=== PATIENT | female | born 1970 | race African-American/Black ===

== ENCOUNTER 2018-02-09 09:51 | Inpatient (IN) | payer MEDICAID ==
[2018-02-09] VITALS (8 sets, daily range): BP systolic 135–157; BP diastolic 56–96
[~2018-02-09] VITALS: Ht 175.3 cm; Wt 121.7 kg
[2018-02-09 10:44] LABS: Basophils # (auto) 0.1 uL; Eosinophils # (auto) 0.2 uL; Lymphocytes # (auto) 2.4 uL
[2018-02-09 10:46] LABS: Basophils % (auto) 0.9 % (0.0-2.0); Hematocrit 24.3 % (36.0-46.0); Lymphocytes % (auto) 26.9 % (10.0-50.0); Mean Corpuscular Hemoglobin 16.7 pg (28.0-32.0); Mean Corpuscular Hgb Conc. 28.4 g/dL (32.0-36.0); Mean Corpuscular Volume 58.9 fL (80.0-100.0); Monocytes # (auto) 0.4 uL; Neutrophils # (auto) 5.9 uL; Neutrophils % (auto) 65.2 % (37.0-80.0); Nucleated Red Blood Cells % 1.2 %; Platelet Count (auto) 522 10^3/uL (140-450); Red Blood Cells 4.13 10^6/uL (4.0-5.20)
[2018-02-09 10:56] LABS: Red Cell Distribution Width 29.2 % (11.8-14.3)
[2018-02-09 10:59] LABS: Hemoglobin 6.9 g/dL (12.2-16.2)
[2018-02-09 11:12] LABS: Alanine Aminotransferase 22 U/L (13-56); Albumin 3.8 g/dL (3.4-5.0); Alkaline Phosphatase 74 U/L (45-117); Anion Gap 9 (5-15); Aspartate Aminotransferase 20 U/L (15-37); Bilirubin, Total 0.2 mg/dL (0.2-1.0); Blood Urea Nitrogen 12 mg/dL (7-18); Calcium 8.7 mg/dL (8.5-10.1); Carbon Dioxide 21 mmol/L (21-32); Chloride 108 mmol/L (98-107); GFR African American 92 mL/min; GFR Non-African American 76 mL/min; Glucose 102 mg/dL (74-106); Sodium 138 mmol/L (136-145); Total Protein 8.1 g/dL (6.4-8.2)
[2018-02-09 11:21] LABS: INR 0.9 (0.9-1.15); Partial Thromboplastin Time 25.7 sec (22.64-33.71); Prothrombin Time 9.8 sec (9.37-12.3)
[2018-02-09 12:07] LABS: Urine Bacteria NONE SEEN /hpf (None Seen); Urine Blood Negative /uL (Negative); Urine Mucus FEW (None Seen); Urine Specific Gravity 1.027 (1.001-1.035); Urine WBC 9 /hpf (0 - 5)
[2018-02-09] MEDS ORDERED: ONDANSETRON HCL 4 MG/2 ML VIAL IV PRN (12:15)
[2018-02-09] MEDS ORDERED: MORPHINE SULFATE 4 MG/ML SYR/VIAL IV PRN (12:15)
[2018-02-09] MEDS ORDERED: LORazepam 0.5 MG TAB PO PRN (12:15)
[2018-02-09] MEDS ORDERED: NITROGLYCERIN 0.4 MG SL TAB SL PRN ×2 (12:15)
[2018-02-09] MEDS ORDERED: ALUM & MAG HYDROX-SIMETH LIQ(MAALOX) 30 ML PO ONE (12:15)
[2018-02-09] MEDS: SODIUM CHLORIDE 0.9% 1,000 ML IV SCH (12:23)
[2018-02-09] MEDS ORDERED: HCTZ 25 MG TAB PO ONE (12:30)
[2018-02-09] MEDS ORDERED: CARVEDILOL 3.125 MG TAB PO ONE (12:30)
[2018-02-09] MEDS ORDERED: LISINOPRIL 20 MG TAB PO ONE (12:30)
[2018-02-09] MEDS ORDERED: PANTOPRAZOLE 40 MG/10 ML VIAL IV ONE (12:30)
[2018-02-09] MEDS ORDERED: DOCUSATE SOD 100 MG CAP PO ONE (12:30)
[2018-02-09 18:27] LABS: Hematocrit 26.4 % (36.0-46.0); Hemoglobin 8.1 g/dL (12.2-16.2)
[2018-02-09] MEDS: ALBUTEROL SULF 2.5 MG/0.5ML(0.5%) NEB SOLN NEB SCH (18:35)
[2018-02-09] MEDS: ATORVASTATIN 20 MG TAB PO SCH (21:57)
[2018-02-09] MEDS: CARVEDILOL 3.125 MG TAB PO SCH (21:58)
[2018-02-09] MEDS: LISINOPRIL 20 MG TAB PO SCH (21:58)
[2018-02-09] MEDS: ZOLPIDEM TARTRATE 5 MG TAB PO PRN (22:40)
[2018-02-10] MEDS ORDERED: LORA5SYP23 PO (04:24)
[2018-02-10] MEDS ORDERED: FERR-7 PO (04:24)
[2018-02-10] MEDS ORDERED: IBUP-781 PO (04:24)
[2018-02-10] MEDS ORDERED: LISI-646 PO (04:24)
[2018-02-10] MEDS ORDERED: ATOR10TA52 PO (04:24)
[2018-02-10 05:00] VITALS: BP 148/85
[2018-02-10 05:47] LABS: Basophils # (auto) 0.1 uL; Eosinophils # (auto) 0.2 uL; Hemoglobin 8.1 g/dL (12.2-16.2); Lymphocytes # (auto) 1.5 uL; Neutrophils # (auto) 7.6 uL
[2018-02-10 05:50] LABS: Basophils % (auto) 0.7 % (0.0-2.0); Hematocrit 27.1 % (36.0-46.0); Lymphocytes % (auto) 15.2 % (10.0-50.0); Mean Corpuscular Hemoglobin 18.9 pg (28.0-32.0); Mean Corpuscular Volume 62.9 fL (80.0-100.0); Monocytes # (auto) 0.5 uL; Monocytes % (auto) 5.2 % (0.0-12.0); Neutrophils % (auto) 76.9 % (37.0-80.0); Nucleated Red Blood Cells % 0.3 %; Platelet Count (auto) 522 10^3/uL (140-450); Red Blood Cells 4.31 10^6/uL (4.0-5.20); White Blood Cell 9.9 10^3/uL (4.4-10.8)
[2018-02-10] MEDS: ACETAMINOPHEN 325 MG TAB PO PRN ×2 (05:52→19:46)
[2018-02-10 05:59] LABS: Red Cell Distribution Width 32.8 % (11.8-14.3)
[2018-02-10 06:10] LABS: Alanine Aminotransferase 17 U/L (13-56); Albumin 3.4 g/dL (3.4-5.0); Alkaline Phosphatase 67 U/L (45-117); Anion Gap 9 (5-15); Aspartate Aminotransferase 18 U/L (15-37); BUN/Creatinine Ratio 16.4; Bilirubin, Total 0.3 mg/dL (0.2-1.0); Blood Urea Nitrogen 12 mg/dL (7-18); Calcium 8.5 mg/dL (8.5-10.1); Carbon Dioxide 22 mmol/L (21-32); Chloride 108 mmol/L (98-107); Cholesterol 149 mg/dL (< 200); GFR African American 111 mL/min; GFR Non-African American 92 mL/min; Glucose 93 mg/dL (74-106); HDL Cholesterol 38 mg/dL (40-59); LDL Cholesterol 95 mg/dL (< 100); Magnesium 2.3 mg/dL (1.6-2.6); Potassium 3.7 mmol/L (3.5-5.1); Sodium 139 mmol/L (136-145); Total Protein 7.3 g/dL (6.4-8.2); Triglycerides 222 mg/dL (< 150)
[2018-02-10] MEDS: ALBUTEROL SULF 2.5 MG/0.5ML(0.5%) NEB SOLN NEB SCH ×4 (06:14→18:25)
[2018-02-10 08:00] VITALS: BP 115/87
[2018-02-10] MEDS: MORPHINE SULFATE 4 MG/ML SYR/VIAL IV PRN ×2 (08:46→23:49)
[2018-02-10 09:00] VITALS: BP 115/87
[2018-02-10] MEDS: DOCUSATE SOD 100 MG CAP PO SCH (10:33)
[2018-02-10] MEDS: PANTOPRAZOLE 40 MG/10 ML VIAL IV SCH (10:33)
[2018-02-10] MEDS: HCTZ 25 MG TAB PO SCH (10:34)
[2018-02-10] MEDS: LISINOPRIL 20 MG TAB PO SCH ×2 (10:36→22:16)
[2018-02-10] MEDS: CARVEDILOL 3.125 MG TAB PO SCH ×2 (10:36→22:16)
[2018-02-10] MEDS: SODIUM CHLORIDE 0.9% 1,000 ML IV SCH (12:06)
[2018-02-10 17:31] VITALS: BP 117/75
[2018-02-10 20:00] VITALS: BP 141/98
[2018-02-10 22:00] VITALS: BP 141/98
[2018-02-10] MEDS: ATORVASTATIN 20 MG TAB PO SCH (22:16)
[2018-02-11] MEDS: ALBUTEROL SULF 2.5 MG/0.5ML(0.5%) NEB SOLN NEB SCH ×4 (00:31→19:45)
[2018-02-11 05:00] VITALS: BP 125/88
[2018-02-11 06:17] LABS: Basophils # (auto) 0.1 uL; Eosinophils # (auto) 0.1 uL; Eosinophils % (auto) 1.6 % (0.0-7.0); White Blood Cell 8.9 10^3/uL (4.4-10.8)
[2018-02-11 06:19] LABS: Basophils % (auto) 0.7 % (0.0-2.0); Hematocrit 26.4 % (36.0-46.0); Lymphocytes # (auto) 1.4 uL; Mean Corpuscular Hemoglobin 19.2 pg (28.0-32.0); Mean Corpuscular Hgb Conc. 30.3 g/dL (32.0-36.0); Mean Corpuscular Volume 63.3 fL (80.0-100.0); Monocytes # (auto) 0.4 uL; Monocytes % (auto) 5.1 % (0.0-12.0); Neutrophils # (auto) 6.8 uL; Neutrophils % (auto) 76.6 % (37.0-80.0); Nucleated Red Blood Cells % 0.4 %; Platelet Count (auto) 525 10^3/uL (140-450); Red Blood Cells 4.18 10^6/uL (4.0-5.20)
[2018-02-11 06:28] LABS: Red Cell Distribution Width 32.6 % (11.8-14.3)
[2018-02-11 06:38] LABS: Albumin 3.4 g/dL (3.4-5.0); BUN/Creatinine Ratio 16.3; Bilirubin, Total 0.4 mg/dL (0.2-1.0); Calcium 8.6 mg/dL (8.5-10.1); Potassium 3.8 mmol/L (3.5-5.1); Total Protein 7.4 g/dL (6.4-8.2)
[2018-02-11] MEDS: MORPHINE SULFATE 4 MG/ML SYR/VIAL IV PRN (08:15)
[2018-02-11 09:00] VITALS: BP 130/83
[2018-02-11] MEDS: HCTZ 25 MG TAB PO SCH (09:36)
[2018-02-11] MEDS: LISINOPRIL 20 MG TAB PO SCH ×2 (09:36→22:33)
[2018-02-11] MEDS: DOCUSATE SOD 100 MG CAP PO SCH (09:37)
[2018-02-11] MEDS: CARVEDILOL 3.125 MG TAB PO SCH ×2 (09:37→22:32)
[2018-02-11] MEDS: PANTOPRAZOLE 40 MG/10 ML VIAL IV SCH (09:38)
[2018-02-11] MEDS: SODIUM CHLORIDE 0.9% 1,000 ML IV SCH (11:36)
[2018-02-11 13:00] VITALS: BP 135/86
[2018-02-11] MEDS ORDERED: HYDROcodone-ACET 10/325MG TAB PO PRN (15:00)
[2018-02-11] MEDS: ACETAMINOPHEN 325 MG TAB PO PRN ×2 (15:38→22:37)
[2018-02-11 16:00] VITALS: BP 133/85
[2018-02-11 22:00] VITALS: BP 118/85
[2018-02-11] MEDS: ATORVASTATIN 20 MG TAB PO SCH (22:31)
[2018-02-11] MEDS: ZOLPIDEM TARTRATE 5 MG TAB PO PRN (22:34)
[2018-02-12 05:00] VITALS: BP 107/82
[2018-02-12 05:52] LABS: Basophils % (auto) 0.5 % (0.0-2.0); Hemoglobin 8.8 g/dL (12.2-16.2); Monocytes # (auto) 0.5 uL
[2018-02-12 05:54] LABS: Basophils # (auto) 0 uL; Eosinophils # (auto) 0.1 uL; Eosinophils % (auto) 1.5 % (0.0-7.0); Hematocrit 29.7 % (36.0-46.0); Lymphocytes # (auto) 1.7 uL; Lymphocytes % (auto) 18.5 % (10.0-50.0); Mean Corpuscular Hemoglobin 18.6 pg (28.0-32.0); Mean Corpuscular Hgb Conc. 29.8 g/dL (32.0-36.0); Mean Corpuscular Volume 62.6 fL (80.0-100.0); Monocytes % (auto) 5.1 % (0.0-12.0); Neutrophils # (auto) 6.8 uL; Neutrophils % (auto) 74.4 % (37.0-80.0); Nucleated Red Blood Cells % 0.2 %; Platelet Count (auto) 660 10^3/uL (140-450); Red Blood Cells 4.74 10^6/uL (4.0-5.20); White Blood Cell 9.2 10^3/uL (4.4-10.8)
[2018-02-12 05:55] LABS: BUN/Creatinine Ratio 19.3; Potassium 3.7 mmol/L (3.5-5.1)
[2018-02-12 05:59] LABS: Calcium 9.4 mg/dL (8.5-10.1)
[2018-02-12 06:26] LABS: Red Cell Distribution Width 33.4 % (11.8-14.3)
[2018-02-12] MEDS: ALBUTEROL SULF 2.5 MG/0.5ML(0.5%) NEB SOLN NEB SCH ×4 (07:49→18:58)
[2018-02-12 09:00] VITALS: BP 108/70
[2018-02-12] MEDS: PANTOPRAZOLE 40 MG/10 ML VIAL IV SCH (09:42)
[2018-02-12] MEDS: DOCUSATE SOD 100 MG CAP PO SCH (10:18)
[2018-02-12] MEDS: CARVEDILOL 3.125 MG TAB PO SCH ×2 (10:19→21:31)
[2018-02-12 10:28] LABS: Beta HCG, Quantitative < 1 mlU/mL (1-3); Thyroid Stimulating Hormone 2.23 uIU/mL (0.358-3.74)
[2018-02-12] MEDS: LISINOPRIL 20 MG TAB PO SCH ×2 (10:37→21:31)
[2018-02-12] MEDS: HCTZ 25 MG TAB PO SCH (10:37)
[2018-02-12] MEDS: SODIUM CHLORIDE 0.9% 1,000 ML IV SCH (12:12)
[2018-02-12 13:00] VITALS: BP 121/100
[2018-02-12] MEDS: ACETAMINOPHEN 325 MG TAB PO PRN (14:42)
[2018-02-12 17:00] VITALS: BP 146/104
[2018-02-12] MEDS: ZOLPIDEM TARTRATE 5 MG TAB PO PRN (21:31)
[2018-02-12] MEDS: ATORVASTATIN 20 MG TAB PO SCH (21:31)
[2018-02-12 21:42] VITALS: BP 110/70
[2018-02-12 22:54] VITALS: BP 110/70
[2018-02-13] VITALS (7 sets, daily range): BP systolic 100–139; BP diastolic 62–97
[2018-02-13] MEDS: ALBUTEROL SULF 2.5 MG/0.5ML(0.5%) NEB SOLN NEB SCH ×3 (05:48→12:00)
[2018-02-13] MEDS ORDERED: ADENOSINE 102 MG in GIVE UN-DILUTED 0 ML IV STA (10:24)
[2018-02-13] MEDS: PANTOPRAZOLE 40 MG/10 ML VIAL IV SCH (11:44)
[2018-02-13] MEDS: HCTZ 25 MG TAB PO SCH (11:45)
[2018-02-13] MEDS: LISINOPRIL 20 MG TAB PO SCH (11:45)
[2018-02-13] MEDS: DOCUSATE SOD 100 MG CAP PO SCH (11:46)
[2018-02-13] MEDS: CARVEDILOL 3.125 MG TAB PO SCH (11:46)
[2018-02-13] MEDS: ACETAMINOPHEN 325 MG TAB PO PRN (12:02)
[2018-02-13] MEDS: SODIUM CHLORIDE 0.9% 1,000 ML IV SCH (12:06)
== END 2018-02-13 18:35 | disposition home or self-care (01) | DRG 203 ==
LOC: ER 09:51 → TELE 09:52 → TELE-WESTW 21:05
PROVIDERS: ADMIT Internal Medicine; ATTEND Internal Medicine
PROC: 30233N1 Transfusion of Nonautologous Red Blood Cells into Peripheral Vein, Percutaneous Approach (ICD-10-PCS; principal; 2018-02-09)
DX: R07.9 Chest pain, unspecified (principal); I10 Essential (primary) hypertension; D25.9 Leiomyoma of uterus, unspecified; D50.0 Iron deficiency anemia secondary to blood loss (chronic); F17.210 Nicotine dependence, cigarettes, uncomplicated; E78.5 Hyperlipidemia, unspecified; E66.9 Obesity, unspecified; E78.00 Pure hypercholesterolemia, unspecified; J45.909 Unspecified asthma, uncomplicated; Z82.49 Family history of ischemic heart disease and other diseases of the circulatory system; Z68.39 Body mass index [BMI] 39.0-39.9, adult
CPT/HCPCS: 36415; 36430; 71046; 76856; 80048; 80053; 80061; 81001; 81025; 82270; 83540; 83735; 83880; 84443; 84484; 84702; 85014; 85018; 85025; 85610; 85730; 86850; 86900; 86901; 86920; 87086; 93005; 93017; 93306; 94640; 96374; 99291; C9113; J0153